=== PATIENT | female | born 1960 | race Hispanic/Latino ===

== ENCOUNTER 2025-03-29 12:30 | Inpatient (IN) | payer BC, SELFPAY ==
[2025-03-29] VITALS (8 sets, daily range): BP systolic 124–167; BP diastolic 62–90; BMI 35.0
--- NOTE | 2025-03-29 11:13 | W.PN.CARDCBS ---
Addendum entered and electronically signed by José Luis Schaefer MD 03/29/25 16:31:
[facility] today with trivial coronary artery disease and LVEDP 21 mmHg. Presentation consistent with MINOCA of unclear etiology. Cont. cardioprotective medications asa, statin, and beta lisy. Patient is asymptomatic and clinically stable. Can discharge
to home with cardiology follow up at [facility].
Original Note:
Today's Communication / Plan
-
[facility] today
troponin to peak
get echo results from [facility]
monitor tele
Impression / Plan
-
PCP: Tia Ibarra,
CDY: Mau Parisi MD- changing to Dennis Mercedes MD
HPI: 64 y/o, PMH sig for LBBB, impaired fasting glucose/PreDM, Hypothyroidism, anxiety, former tobacco abuse, fatty liver disease w/elevated LFTs, small airway disease.
Two nights ago, she woke at 1am with left arm pain, with associated n/v, chest pressure. She took four 81mg aspirin. This helped with some of the chest pressure but continued to have arm pain. Her sister drove her to urgent care at 7am and they
referred her to the ER. However, she was tired and went home and took a nap. When she woke, she was still having chest pressure, arm pain and now dyspnea. Her sister drove her to [facility] ER where she ruled in for NSTEMI with HS Trop 437. She was started
on heparin gtt and is currently symptom free. Transferred for [facility] today.
IMPRESSION:
Chest pain
NSTEMI
LBBB
Impaired fasting glucose/preDM
Hypothyroidism
Fatty liver disease with elevated LFTs
Anxiety
Varicose veins, prior vein ablation
Former tobacco abuse
Small Airway disease
PLAN:
[facility] today
HS Troponin 437- has not reached peak. Will send one now
check liver profile, add statin therapy
echo today- done at [facility]- not sent- will attempt to get records from [facility] office
cardiac rehab consult
continue inhalers as needed for small airway disease
check TSH, continue levothyroxine
continue antianxiety meds
followup w/Dr. Mercedes at d/c
Progress Note - Cafe Worker
Subjective
Date of Service: March 29, 2025
Denies cp/palps/dyspnea
resting in bed
Physical Exam
Physical Exam
AAOX3, MAEE 12/24
RRR S1 S2 no murmurs
CTA bilat, non labored
soft abd, + bs
right radial artery with normal Clyde's test, palpable pulses
bilat extremities w/palpable distal pulses, no edema
[2025-03-29 15:16] LABS: Troponin I 1.800 ng/ml
--- NOTE | 2025-03-29 15:47 | PTCARENOTE ---
Pt received at 1240 as a transfer from [facility]. Pt alert and oriented, denies any chest pain or sob. Room air sait 98%. SB - SR, rate in the 50's to 60's. Pt sent to the tender labor and returned at 1539. Right radial band intact, site WNL.
--- NOTE | 2025-03-29 15:48 | CM ---
spoke to pt and husb in room, she is prev indep, lives withher husb in a split level home with no step sto enter. she denies any dme's. plan isf or dc today.
--- NOTE | 2025-03-29 15:50 | W.DS.TRANS ---
DC Summary - Material Control Associate
-
Discharge Instructions:
Discharge Diagnosis/Procedures NSTEMI, cardiac catheterization
Diet Low Cholesterol
Driving Restrictions No driving for 1 week
Instructions:
Stand-Alone Forms: DC Instructions- Cath/EP Lab
Changes to Home Medications: Yes
Discharge Medications:
DC Medications w/original date entered in Circle
albuterol sulfate 2.5 mg/3 mL (0.083 %) solution for nebulization 2.5 mg inhalation Q6HPRN PRN dyspnea/wheezing 03/29/25
albuterol sulfate 90 mcg/actuation aerosol inhaler 2 puff inhalation QID PRN dyspnea/wheezing 03/29/25
aspirin 81 mg tablet 81 mg PO DAILY 03/29/25
atorvastatin 40 mg tablet 40 mg PO QPM #30 tabs 03/29/25
escitalopram oxalate 20 mg tablet 20 mg PO DAILY 03/29/25
fluticasone propionate 50 mcg/actuation nasal spray,suspension 1 spray intranasal DAILYPRN PRN allergies 03/29/25
levothyroxine 112 mcg tablet 112 mcg PO DAILY 03/29/25
metoprolol succinate 25 mg tablet,extended release 24 hr 25 mg PO DAILY #30 tabs 03/29/25
semaglutide (weight loss) 0.25 mg/0.5 mL subcutaneous pen injector 0.25 mg SC QWEEK 03/29/25
tiotropium 2.5 mcg-olodaterol 2.5 mcg/actuation mist for inhalation 2 puff inhalation DAILYPRN PRN dyspnea/wheezing 03/29/25
triazolam 0.25 mg tablet 0.25 mg PO HS PRN sleep 03/29/25
Home Medication Changes
NEW: aspirin, atorvastatin, metoprolol
Pending Results: No
--- NOTE | 2025-03-29 16:23 | ITS.CL.PN ---
Napper [employer]ner - Procedure Note
Procedure
Procedure Note:
CARDIAC CATHETERIZATION REPORT
Date of Procedure: 03/29/2025
Referring: Dr. Ezio Griffin MD
Indication: NSTEMI
PROCEDURE(S)
1. left heart catheterization
2. coronary angiography
ACCESS: 6F right radial artery (closure: radial band)
CATHETERS
1. 6F JR4
2. 6F JL3.5
MODERATE SEDATION: 25 minutes of moderate sedation was utilized. An independent medical surgery nurse was present to assist with and help manage the patient's level of consciousness and physiologic status.
HEMODYNAMIC DATA
LV 145/12 (EDP 21) mmHg
AO 142/80 (mean 107) mmHg
CORONARY ANGIOGRAPHY
Dominance: Right
LM: Large, normal
LAD: Large vessel giving rise to a small D1, large D2, and wrapping around the apex. There are trivial luminal irregularities only.
LCx: Large vessel giving rise to a large OM1 and small LPL branch. There are trivial luminal irregularities only.
RCA: Moderate caliber vessel giving rise to a small RPDA and two small RPL branches. There are trivial luminal irregularities only.
RADIATION: dose 182 mGy; DAP 11.7 Gy*cm2; fluoroscopy time 2.3 min
CONCLUSIONS
1. Mild coronary artery disease in a right dominant system.
2. Moderately elevated LV filling pressure and no aortic stenosis
RECOMMENDATIONS
1. Further workup as an outpatient for etiology of MINOCA
2. Continue aspirin, high intensity statin and beta-lisy
Copy to: Dr. Ezio Griffin MD (cyber security architect); Dr. Tia Ibarra DO (PCP)
Signed: José Luis Schaefer MD, PhD
[2025-03-29] MEDS: LIPITOR 40 MG PO (17:35)
--- NOTE | 2025-03-29 18:53 | PTCARENOTE ---
Pt discharged to home with her daughter after right radial band removed and dressing applied. Discharge instructions given and reviewed with good understanding and all questions answered.
== END 2025-03-29 19:02 | disposition home or self-care (01) | DRG 282 ==
LOC: IVU 12:30
PROVIDERS: Nurse Practitioner; ADMITTING PHYSICIAN Student in an Organized Health Care Education/Training Program; FAMILY PHYSICIAN Family Medicine
PROC: 4A023N7 Measurement of Cardiac Sampling and Pressure, Left Heart, Percutaneous Approach (ICD-10-PCS; 2025-03-29)
PROC: B2111ZZ Fluoroscopy of Multiple Coronary Arteries using Low Osmolar Contrast (ICD-10-PCS; 2025-03-29)
DX: I21.4 Non-ST elevation (NSTEMI) myocardial infarction (principal); I25.10 Atherosclerotic heart disease of native coronary artery without angina pectoris; I44.7 Left bundle-branch block, unspecified; R73.01 Impaired fasting glucose; R73.03 Prediabetes; E03.9 Hypothyroidism, unspecified; F41.9 Anxiety disorder, unspecified; K76.0 Fatty (change of) liver, not elsewhere classified; I83.90 Asymptomatic varicose veins of unspecified lower extremity; I44.0 Atrioventricular block, first degree; Z79.82 Long term (current) use of aspirin; Z87.891 Personal history of nicotine dependence
CPT/HCPCS: 84484; 93005; 93458; C1894; Q9967